=== PATIENT | male | born 1990 | race Caucasian/White ===

== ENCOUNTER 2018-09-22 08:44 | Emergency (ER) | payer MEDICAID ==
[~2018-09-22] VITALS: Ht 177.8 cm; Wt 78.5 kg
[2018-09-22 08:50] VITALS: BP 140/90
== END 2018-09-22 09:24 | disposition home or self-care (01) ==
LOC: ER 08:44
DX: G89.29 Other chronic pain (principal); M54.9 Dorsalgia, unspecified; F17.210 Nicotine dependence, cigarettes, uncomplicated; Z76.0 Encounter for issue of repeat prescription

== ENCOUNTER 2019-01-09 05:08 | Emergency (ER) | payer MEDICAID ==
[~2019-01-09] VITALS: Ht 177.8 cm; Wt 89.4 kg
[2019-01-09 05:19] VITALS: BP 117/68
[2019-01-09] MEDS ORDERED: HYDROcodone-ACET 7.5/325MG TAB PO ONE (07:30)
== END 2019-01-09 07:34 | disposition home or self-care (01) ==
LOC: ER 05:10
DX: G89.18 Other acute postprocedural pain (principal); M79.671 Pain in right foot
CPT/HCPCS: 73630